=== PATIENT | female | born 1935 | race Caucasian/White ===

== ENCOUNTER 2016-10-03 15:31 | Emergency (ER) | payer MEDICARE ==
[2016-04-01 12:43] VITALS: BMI 23.0
[~2016-10-03 15:31] MED LIST: BAYER CHEWABLE81 MG PO; CARDIZEM30 MG PO; CEFTIN250 MG PO; CORDARONE200 MG PO; DULCOLAX STOOL100 MG PO; MIRALAX17 GM PO; MULTIPLE VITAMI1 TA1 PO; OMEPRAZOLE20 M1 PO; PERCOCET 10/3251 TA1 PO; VITAMIN D31000 UNIT PO; ZESTRIL20 MG PO; ZOCOR20 MG PO
[2016-10-03 16:13] LABS: BASOPHILS 0.2 % (0.0-2.0); EOSINOPHILS 0.3 % (0-7); HEMATOCRIT 41.6 % (36.0-48.0); HEMOGLOBIN 13.3 g/dL (12-16); IMMATURE GRANULOCYTES 0.3 % (0-5); LYMPHOCYTES 8.6 % (15-50); MCH 28.5 pg (26.0-34.0); MCV 89.1 fL (80.0-100.0); MEAN PLATELET VOLUME 9.6 fL (7.4-10.4); MONOCYTES 5.1 % (2-11); NEUTROPHILS 85.5 % (40-80); PLATELET COUNT 244 10x3/uL (130-400); RBC 4.67 10x6/uL (4.00-5.40); RDW 15.5 % (11.5-14.5)
[2016-10-03 16:34] LABS: INR 1.07 (0.85-1.17); PROTIME 13.7 SECONDS (11.6-15.0)
[2016-10-03 16:35] LABS: APTT 27.8 SECONDS (22.8-39.4)
[2016-10-03 16:37] LABS: ALBUMIN 4.1 g/dL (3.4-5.0); ANION GAP 18.5 mmol/L (8-16); BILIRUBIN - TOTAL 0.31 mg/dL (0.2-1.3); CALCIUM 9.6 mg/dL (8.5-10.1); CARBON DIOXIDE 21.9 mmol/L (21.0-32.0); CREATININE - SERUM 1.4 mg/dL (0.6-1.3); POTASSIUM - SERUM 4.4 mmol/L (3.5-5.1); PROTEIN - SERUM 7.2 g/dL (6.4-8.2)
== END 2016-10-03 19:56 | disposition home or self-care (01) ==
LOC: D.ER 15:31
PROVIDERS: Emergency Medicine
DX: K57.90 Diverticulosis of intestine, part unspecified, without perforation or abscess without bleeding (principal); J90 Pleural effusion, not elsewhere classified; I10 Essential (primary) hypertension; E78.5 Hyperlipidemia, unspecified; E87.1 Hypo-osmolality and hyponatremia; Z90.2 Acquired absence of lung [part of]; Z85.118 Personal history of other malignant neoplasm of bronchus and lung

== ENCOUNTER → 2017-04-17 11:06 | Outpatient (CLI) | payer MEDICARE ==
[2016-04-01 12:43] VITALS: BMI 23.0
== END | disposition home or self-care (01) ==
LOC: D.US 11:06
DX: E03.9 Hypothyroidism, unspecified (principal)

== ENCOUNTER → 2017-12-17 13:23 | Outpatient (CLI) | payer MEDICARE ==
[2016-04-01 12:43] VITALS: BMI 23.0
== END | disposition home or self-care (01) ==
LOC: D.US 13:23
DX: R59.0 Localized enlarged lymph nodes (principal); R10.9 Unspecified abdominal pain

== ENCOUNTER → 2017-12-29 13:48 | Outpatient (CLI) | payer MEDICARE ==
[2016-04-01 12:43] VITALS: BMI 23.0
== END | disposition home or self-care (01) ==
LOC: D.LABREF 13:48
DX: K81.0 Acute cholecystitis (principal)

== ENCOUNTER → 2017-12-31 12:04 | Outpatient (CLI) | payer MEDICARE ==
[2016-04-01 12:43] VITALS: BMI 23.0
[2017-12-31 12:46] LABS: BASOPHILS 0.2 % (0-2); EOSINOPHILS 4.4 % (0-7); HEMATOCRIT 39.2 % (36.0-48.0); HEMOGLOBIN 12.6 g/dL (12-16); IMMATURE GRANULOCYTES 0.2 % (0-5); LYMPHOCYTES 13.6 % (15-50); MCH 27.5 pg (26.0-34.0); MCHC 32.1 g/dL (31.0-37.0); MCV 85.6 fL (80.0-100.0); MEAN PLATELET VOLUME 9.9 fL (7.4-10.4); MONOCYTES 9.5 % (2-11); NEUTROPHILS 72.1 % (40-80); RBC 4.58 10x6/uL (4.00-5.40); WBC 9.2 10x3/uL (4.8-10.8)
[2017-12-31 12:51] LABS: PLATELET COUNT 326 10x3/uL (130-400)
[2017-12-31 12:58] LABS: CREATININE - SERUM 1.3 mg/dL (0.6-1.3); VANCOMYCIN - TROUGH 19.1 ug/mL (10.0-20.0)
[2017-12-31 13:08] LABS: INR 1.69 (0.85-1.17); PROTIME 19.3 SECONDS (11.6-15.0)
== END | disposition home or self-care (01) ==
LOC: D.LABREF 12:04
DX: K81.0 Acute cholecystitis (principal)

== ENCOUNTER → 2018-01-07 11:17 | Outpatient (CLI) | payer MEDICARE ==
[2016-04-01 12:43] VITALS: BMI 23.0
[2018-01-07 11:55] LABS: BASOPHILS 1.2 % (0-2); EOSINOPHILS 6.1 % (0-7); HEMATOCRIT 36.9 % (36.0-48.0); HEMOGLOBIN 11.6 g/dL (12-16); IMMATURE GRANULOCYTES 0.2 % (0-5); LYMPHOCYTES 25.7 % (15-50); MCH 27.1 pg (26.0-34.0); MCHC 31.4 g/dL (31.0-37.0); MCV 86.2 fL (80.0-100.0); MEAN PLATELET VOLUME 10.2 fL (7.4-10.4); MONOCYTES 7.2 % (2-11); NEUTROPHILS 59.6 % (40-80); PLATELET COUNT 277 10x3/uL (130-400); RBC 4.28 10x6/uL (4.00-5.40); RDW 15.9 % (11.5-14.5)
[2018-01-07 12:11] LABS: CREATININE - SERUM 1.3 mg/dL (0.6-1.3); VANCOMYCIN - TROUGH 21.8 ug/mL (10.0-20.0)
== END | disposition home or self-care (01) ==
LOC: D.LABREF 11:17
DX: I50.9 Heart failure, unspecified (principal); C34.90 Malignant neoplasm of unspecified part of unspecified bronchus or lung; Z45.2 Encounter for adjustment and management of vascular access device

== ENCOUNTER → 2018-01-14 11:26 | Outpatient (CLI) | payer MEDICARE ==
[2016-04-01 12:43] VITALS: BMI 23.0
[2018-01-14 12:59] LABS: BASOPHILS 1.2 % (0-2); EOSINOPHILS 5.2 % (0-7); HEMOGLOBIN 11.4 g/dL (12-16); IMMATURE GRANULOCYTES 0.2 % (0-5); LYMPHOCYTES 26.4 % (15-50); MCHC 31.7 g/dL (31.0-37.0); MCV 85.3 fL (80.0-100.0); MEAN PLATELET VOLUME 10.7 fL (7.4-10.4); MONOCYTES 7.4 % (2-11); NEUTROPHILS 59.6 % (40-80); PLATELET COUNT 284 10x3/uL (130-400); RBC 4.22 10x6/uL (4.00-5.40); RDW 16.2 % (11.5-14.5)
[2018-01-14 13:17] LABS: CREATININE - SERUM 1.5 mg/dL (0.6-1.3); VANCOMYCIN - TROUGH 19.6 ug/mL (10.0-20.0)
== END | disposition home or self-care (01) ==
LOC: D.LABREF 11:26
PROVIDERS: Family Medicine
DX: I33.0 Acute and subacute infective endocarditis (principal); I50.9 Heart failure, unspecified; Z45.2 Encounter for adjustment and management of vascular access device; Z51.81 Encounter for therapeutic drug level monitoring; Z79.899 Other long term (current) drug therapy

== ENCOUNTER → 2018-01-21 11:11 | Outpatient (CLI) | payer MEDICARE ==
[2016-04-01 12:43] VITALS: BMI 23.0
[2018-01-21 12:22] LABS: HEMATOCRIT 34.7 % (36.0-48.0); HEMOGLOBIN 11.4 g/dL (12-16); IMMATURE GRANULOCYTES 0.3 % (0-5); LYMPHOCYTES 23.9 % (15-50); MCH 27.9 pg (26.0-34.0); MCHC 32.9 g/dL (31.0-37.0); MCV 84.8 fL (80.0-100.0); MEAN PLATELET VOLUME 10.4 fL (7.4-10.4); MONOCYTES 11.3 % (2-11); NEUTROPHILS 57.5 % (40-80); PLATELET COUNT 258 10x3/uL (130-400); RBC 4.09 10x6/uL (4.00-5.40); RDW 16.6 % (11.5-14.5); WBC 5.9 10x3/uL (4.8-10.8)
[2018-01-21 12:37] LABS: CREATININE - SERUM 1.4 mg/dL (0.6-1.3); VANCOMYCIN - TROUGH 17.4 ug/mL (10.0-20.0)
== END | disposition home or self-care (01) ==
LOC: D.LABREF 11:11
PROVIDERS: Internal Medicine
DX: I33.0 Acute and subacute infective endocarditis (principal); Z51.81 Encounter for therapeutic drug level monitoring; Z79.899 Other long term (current) drug therapy; Z45.2 Encounter for adjustment and management of vascular access device

== ENCOUNTER → 2018-01-28 14:08 | Outpatient (CLI) | payer MEDICARE ==
[2016-04-01 12:43] VITALS: BMI 23.0
[2018-01-28 15:31] LABS: CREATININE - SERUM 1.4 mg/dL (0.6-1.3)
[2018-01-28 15:33] LABS: BASOPHILS 0.8 % (0-2); EOSINOPHILS 4.8 % (0-7); HEMOGLOBIN 11.4 g/dL (12-16); IMMATURE GRANULOCYTES 0.5 % (0-5); LYMPHOCYTES 27.9 % (15-50); MCHC 31.7 g/dL (31.0-37.0); MCV 85.1 fL (80.0-100.0); MEAN PLATELET VOLUME 10.4 fL (7.4-10.4); MONOCYTES 8.6 % (2-11); NEUTROPHILS 57.4 % (40-80); PLATELET COUNT 251 10x3/uL (130-400); RBC 4.23 10x6/uL (4.00-5.40); RDW 17.4 % (11.5-14.5); WBC 6.3 10x3/uL (4.8-10.8)
== END | disposition home or self-care (01) ==
LOC: D.LABREF 14:08
PROVIDERS: Internal Medicine
DX: I30.0 Acute nonspecific idiopathic pericarditis (principal); Z51.81 Encounter for therapeutic drug level monitoring; Z45.2 Encounter for adjustment and management of vascular access device